=== PATIENT | male | born 2000 | race Caucasian/White ===

== ENCOUNTER 2022-12-04 20:01 | Inpatient (IN) ==
[2022-12-04 20:31] VITALS: BMI 32.1
[2022-12-04 21:07] LABS: APPEARANCE,URINE CLEAR (CLEAR); BILIRUBIN,URINE NEGATIVE (NEGATIVE); BLOOD/HEMOGLOBIN,URINE NEGATIVE (NEGATIVE); COLOR,URINE YELLOW (YELLOW); GLUCOSE, URINE NEGATIVE (NEGATIVE); KETONES,URINE NEGATIVE (NEGATIVE); LEUKOCYTE ESTERASE ,URINE NEGATIVE (NEGATIVE); NITRITES,URINE NEGATIVE (NEGATIVE); PROTEIN,URINE 1+ (NEGATIVE); UROBILINOGEN,URINE NORMAL (NORMAL)
[2022-12-04 21:17] LABS: BACTERIA,URINE NEGATIVE /HPF (NEGATIVE); RBC,URINE NONE SEEN /HPF (0-3); SQUAMOUS EPITHELIAL CELL,UR RARE /HPF (NEGATIVE)
--- NOTE | 2022-12-04 22:05 | DR.UPM ---
HPI Time Seen Time Seen by Provider: 12/04/22 22:02 PCP Primary Care Physician: landry Complaint Chief Complaint Doctors Comments: LOWER ABDOMINAL PAIN WITH DECREASED URINE OUTPUT FOR ONE DAY Chief Complaint:: pt c/o lower abd pain and decreased in urine output x 1 day COVID-19 Coronavirus risk:travel/contact w/high risk person: No Has patient experienced Coronavirus symptoms: No Source History Provided: Patient Mode of Arrival Mode of Arrival: Ambulatory Timing Onset of Chief Complaint: 12/04/22 PMH PMH Past Medical History: Yes Past Medical History: Depression Past Medical History Comment: ADHD,AUTISM Past Surgical History: Yes Past Surgical History Comment: TUBES IN EARS Family History History of Family Medical Conditions: Yes Family Medical History: Diabetes Mellitus and Hypertension Social History Type of Tobacco Use: Cigarettes Does any household member use tobacco: Yes Alcohol Use: Occasionally Do you use any recreational Drugs:: Yes (THC) Lives With: Family Lives Where: Home Travel Risk Coronavirus risk:travel/contact w/high risk person: No Has patient experienced Coronavirus symptoms: No Infectious screening In the last 2 months have you had wt loss of >10#?: NO Have you had fever, night sweats or hemotysis?: No Have you traveled outside the country in the last 6 months?: No Isolation: Standard ROS Review of Systems Constitutional: Other (RLQ ABDOMINAL PAIN) Eyes: No Symptoms Reported ENTM: No Symptoms Reported Respiratoy: No Symptoms Reported Cardiovascular: No Symptoms Reported Gastrointestinal/Abdominal: Abdominal Pain (RLQ ABDOMINAL PAIN WITH REBOUND) Genitourinary: No Symptoms Reported Neurological: No Symptoms Reported Musculoskeletal: No Symptoms Reported Integumentary: No Symptoms Reported Hematologic/Lymphatic: No Symptoms Reported Endocrine: No Symptoms Reported Psychiatric: No Symptoms Reported PE Vital Signs Vitals: Temperature 99.1 F Pulse Rate 98 Respiratory Rate 18 Blood Pressure [Left Arm] 129/72 Blood Pressure 135/74 O2 Sat by Pulse Oximetry 100 General Limitations: No Limitations General Appearance: Alert and In Distress (MODERATE DISTRESS) Head Head Exam: Normal Inspection, Atraumatic and Normocephalic Eyes Eye exam: Normal Appearance, PERRL and EOMI ENT ENT Exam: Normal Exam, Normal Oropharynx and Normal External Ear Exam Neck Neck Exam: Normal Inspection, Full ROM and Trachea Midline Chest Chest Inspection: Normal Inspection Respiratory Respiratory Exam: Normal Lung Sounds Bilat Respiratory Exam: Bilateral: Clear to Auscultation Cardiovascular Cardiovascular Exam: Regular Rate and Normal Rhythm Abdominal Exam Abdominal Exam: Tenderness (RLQ) Abdominal Tenderness: RLQ Rectal Rectal Exam: Deferred Extremities Extremities Exam: Normal Inspection and Full ROM Back Back Exam: Normal Inspection Psychiatric Psychiatric Exam: Normal Affect Skin Skin Exam: Warm, Dry and Intact MDM Differential Diagnosis Differential Diagnosis: Appendicitis, Urolithiasis and UTI COURSE Treatment Treatment: PATIENT HAD CT OF ABDOMEN AND PELVIS THAT WAS POSITIVE FOR ACUTE APPENDICITIS. SPOKE TO DR CARTER AT 2310 AND HE STATED TO ADMIT THE PATIENT AND START ZOSYN 3.375 GRAMS BUT PATIENT IS ALLERGIC TO PCN SO WILL GIVE CLEOCIN 600MG IV Q 8 HOURS. FIRST DOSE GIVEN IN ER. PATIENT WAS MADE ARARE OF THE INTENT AND WAS AGREABLE TO THE ADMISSION. WILL QLSO START NACL AT 125CC/HR. ROR Labs Reviewed Laboratory Results Reviewed?: Yes Result Diagrams: 12/04/22 22:40 12/04/22 22:40 Laboratory: WBC 9.6 X10^3/uL (3.6-10.0) 12/04/22 22:40 RBC 5.54 X10^6/uL (4.7-6.0) 12/04/22 22:40 Hgb 15.9 g/dL (13.5-18.0) 12/04/22 22:40 Hct 45.1 % (42.0-54.0) 12/04/22 22:40 MCV 81.4 fL (80.0-100.0) 12/04/22 22:40 MCH 28.6 pg (27.0-34.0) 12/04/22 22:40 MCHC 35.1 g/dL (33.0-35.0) H 12/04/22 22:40 RDW 13.5 % (11.6-16.5) 12/04/22 22:40 Plt Count 289 X10^3/uL (150.0-450.0) 12/04/22 22:40 MPV 7.3 fL (7.4-11.0) L 12/04/22 22:40 Neut % (Auto) 64.4 % (42.0-75.0) 12/04/22 22:40 Lymph % (Auto) 26.1 % (21.0-51.0) 12/04/22 22:40 [place] % (Auto) 7.3 % (0.0-13.0) 12/04/22 22:40 Eos % (Auto) 1.5 % (0.9-2.9) 12/04/22 22:40 Baso % (Auto) 0.7 % (0.2-1.0) 12/04/22 22:40 Neut # (Auto) 6.2 x10^3/uL (2.2-4.8) H 12/04/22 22:40 Lymph # (Auto) 2.5 X10^3/uL (1.3-2.9) 12/04/22 22:40 [place] # (Auto) 0.7 x10^3/uL (0.3-0.8) 12/04/22 22:40 Eos # (Auto) 0.1 x10^3/uL (0.0-0.2) 12/04/22 22:40 Baso # (Auto) 0.1 X10^3/uL (0.0-0.1) 12/04/22 22:40 Absolute Nucleated RBC 0.1 /100WBC 12/04/22 22:40 Sodium 137 mmol/L (136-145) 12/04/22 22:40 Corrected Sodium TNP 12/04/22 22:40 Potassium 4.0 mmol/L (3.5-5.1) 12/04/22 22:40 Chloride 101 mmol/L (98-107) 12/04/22 22:40 Carbon Dioxide 28.9 mmol/L (21-32) 12/04/22 22:40 BUN 9 mg/dL (7-18) 12/04/22 22:40 Creatinine 1.25 mg/dL (0.70-1.30) 12/04/22 22:40 Est GFR (MDRD) Af Amer > 60 (>60) 12/04/22 22:40 Est GFR (MDRD) Non-Af > 60 (>60) 12/04/22 22:40 Glucose 91 mg/dL (65-99) 12/04/22 22:40 Calcium 8.3 mg/dL (8.5-10.1) L 12/04/22 22:40 Corrected Calcium TNP 12/04/22 22:40 Total Bilirubin 0.30 mg/dL (0.2-1.0) 12/04/22 22:40 AST 22 Units/L (15-37) 12/04/22 22:40 ALT 39 Units/L (12-78) 12/04/22 22:40 Alkaline Phosphatase 78 Units/L (46-116) 12/04/22 22:40 Total Protein 6.9 g/dL (6.4-8.2) 12/04/22 22:40 Albumin 4.0 g/dL (3.4-5.0) 12/04/22 22:40 Globulin 2.9 g/dL (2.5-4.5) 12/04/22 22:40 Albumin/Globulin Ratio 1.4 Ratio (1.1-2.1) 12/04/22 22:40 Specimen Type Clean catch urine 12/04/22 20:54 Urine Color Yellow (YELLOW) 12/04/22 20:54 Urine Appearance Clear (CLEAR) 12/04/22 20:54 Urine pH 8.0 (5.0 - 8.0) 12/04/22 20:54 Ur Specific [place] 1.015 (1.000-1.030) 12/04/22 20:54 Urine Protein 1+ (NEGATIVE) 12/04/22 20:54 Urine Glucose (UA) Negative (NEGATIVE) 12/04/22 20:54 Urine Ketones Negative (NEGATIVE) 12/04/22 20:54 Urine Blood Negative (NEGATIVE) 12/04/22 20:54 Urine Nitrite Negative (NEGATIVE) 12/04/22 20:54 Urine Bilirubin Negative (NEGATIVE) 12/04/22 20:54 Urine Urobilinogen Normal (NORMAL) 12/04/22 20:54 Ur Leukocyte Esterase Negative (NEGATIVE) 12/04/22 20:54 Urine RBC None seen /HPF (0-3) 12/04/22 20:54 Urine WBC None seen /HPF (0-5) 12/04/22 20:54 Ur Squamous Epith Cells Rare /HPF (NEGATIVE) 12/04/22 20:54 Amorphous Sediment 1+ /HPF (NEGATIVE) 12/04/22 20:54 Urine Bacteria Negative /HPF (NEGATIVE) 12/04/22 20:54 Urine Mucus Moderate /HPF (NEGATIVE) 12/04/22 20:54 Ur Culture Indicated? No/not indicated 12/04/22 20:54 Opioid Opioid Risk Tool Age (Abdirahman box if 16-45): Yes History of Preadolescent Sexual Abuse: No Total: 1 Total Score Risk Category: Low Risk Copyright: Nathaniel PATRICK predicting aberrant behaviors Discharge Plan Diagnosis Discharge Problem: Acute appendicitis Discharge Plan Patient Disposition: ADMITTED INPATIENT Condition: Stable Prescriptions: No Action [facility] Concerns: Post Hospitalization: new medications and changes needed to prevent readmission or further decline. Pt educated and given instructions on all concerns. Plan of Treatment: Continue with present treatment and follow up plan. Pt is to keep follow up appointment as instructed and take medications as ordered. Orders to Discharge Patient Discharge Orders: Transfer (Routine); Ordered 12/04/22 Ordered By: Ángel Velázquez Follow ups/Referrals Follow ups/Referrals: ONDINA LANDRY [Primary Care Provider] - 3 days
--- NOTE | 2022-12-04 22:42 | CT ---
HISTORYLOWER ABD PAINSTUDYABDOMEN/PELVIS W/O CONCOMPARISONNoneTECHNIQUENon-contrasted axial CT images of the abdomen and pelvis were obtained and reformatted into coronal and sagittal planes for further evaluation.Radiation dose: 539.74 mGy-cm total DLPFINDINGSLung bases are clear.Stomach appears normal.Solid visceral organs of the upper abdomen are unremarkable.Gallbladder appears normal.No intra or extrahepatic biliary dilatation.Unremarkable appearance of the kidneys.No hydronephrosis, hydroureter or ureteral calculus.Unremarkable appearance of the urinary bladder.Normal appearance of the small and large bowel.Reproductive structures are unremarkable.Appendix measures up to 10 mm in thickness. Mild edema surrounding the appendix.No pneumoperitoneum.No significant fluid collection.No adenopathy.No acute osseous abnormality.IMPRESSIONAppendix measures up to 10 mm in thickness. Mild edema surrounding the appendix. Findings are concerning for acute appendicitis.Electronically signed by: Hayden Crane (Dec 04, 2022 22:40:46)
[2022-12-04 22:52] LABS: HEMATOCRIT 45.1 % (42.0-54.0); HEMOGLOBIN 15.9 g/dL (13.5-18.0)
[2022-12-04 22:56] LABS: BASOPHILS # (AUTO) 0.1 X10^3/uL (0.0-0.1); BASOPHILS % (AUTO) 0.7 % (0.2-1.0); EOSINOPHILS # (AUTO) 0.1 x10^3/uL (0.0-0.2); EOSINOPHILS % (AUTO) 1.5 % (0.9-2.9); LYMPHOCYTES # (AUTO) 2.5 X10^3/uL (1.3-2.9); LYMPHOCYTES % (AUTO) 26.1 % (21.0-51.0); MEAN CORPUSCULAR HEMOGLOBIN 28.6 pg (27.0-34.0); MEAN CORPUSCULAR HGB CONC 35.1 g/dL (33.0-35.0); MEAN CORPUSCULAR VOLUME 81.4 fL (80.0-100.0); MEAN PLATELET VOLUME 7.3 fL (7.4-11.0); MONOCYTES # (AUTO) 0.7 x10^3/uL (0.3-0.8); MONOCYTES % (AUTO) 7.3 % (0.0-13.0); NEUTROPHILS # (AUTO) 6.2 x10^3/uL (2.2-4.8); NEUTROPHILS % (AUTO) 64.4 % (42.0-75.0); RED BLOOD COUNT 5.54 X10^6/uL (4.7-6.0); RED CELL DISTRIBUTION WIDTH 13.5 % (11.6-16.5); WHITE BLOOD COUNT 9.6 X10^3/uL (3.6-10.0)
[2022-12-04 23:03] LABS: ALANINE AMINOTRANSFERASE 39 Units/L (12-78); ALKALINE PHOSPHATASE 78 Units/L (46-116); ASPARTATE AMINO TRANSFERASE 22 Units/L (15-37); BLOOD UREA NITROGEN 9 mg/dL (7-18); CALCIUM 8.3 mg/dL (8.5-10.1); CARBON DIOXIDE 28.9 mmol/L (21-32); CHLORIDE 101 mmol/L (98-107); CREATININE 1.25 mg/dL (0.70-1.30); SODIUM 137 mmol/L (136-145); TOTAL PROTEIN 6.9 g/dL (6.4-8.2); eGFR NON BLACK RACES > 60 (>60)
[2022-12-04] MEDS ORDERED: ZOSYN VIAL 3.375 GRAMS IV ONE (23:15)
[2022-12-04] MEDS ORDERED: NS 1,000 ML IV 1,000 ML ONE (23:16)
[2022-12-04] MEDS: NS 1,000 ML IV 1,000 ML IV SCH (23:23)
[2022-12-04] MEDS ORDERED: CLEOCIN 600 MG IV PREMIX 600 MG/50 ML BAG IV ONE (23:35)
[2022-12-04] MEDS: CLEOCIN 600 MG IV PREMIX 600 MG/50 ML BAG IV SCH (23:38)
[2022-12-04] MEDS ORDERED: NS 1,000 ML IV 1,000 ML IV SCH (23:45)
[2022-12-05] MEDS ORDERED: NS 1,000 ML IV 1,000 ML ONE (04:32)
[2022-12-05] MEDS ORDERED: CLEOCIN 600 MG IV PREMIX 600 MG/50 ML BAG IV ONE (04:32)
[2022-12-05] MEDS: CLEOCIN 600 MG IV PREMIX 600 MG/50 ML BAG IV SCH ×2 (06:11→13:17)
[2022-12-05] MEDS: NS 1,000 ML IV 1,000 ML IV SCH ×3 (06:11→16:22)
[2022-12-05] MEDS ORDERED: DILAUDID INJ IVP PRN ×2 (06:15→08:48)
[2022-12-05] MEDS ORDERED: BRIDION ONE (08:29)
[2022-12-05] MEDS ORDERED: DIPRIVAN VIAL 20 ML ONE (08:29)
[2022-12-05] MEDS ORDERED: FENTANYL VIAL INJ 100 mcg ONE (08:29)
[2022-12-05] MEDS ORDERED: VERSED ONE (08:29)
[2022-12-05] MEDS ORDERED: OFIRMEV IV 1000 MG VIAL 1,000 MG/100 ML VIAL IV ONE (08:29)
[2022-12-05] MEDS ORDERED: PEPCID 20 MG VIAL ONE (08:30)
[2022-12-05] MEDS ORDERED: ZEMURON 100 MG VIAL ONE (08:30)
[2022-12-05] MEDS ORDERED: ZOFRAN INJ 4 MG VIAL ONE (08:30)
[2022-12-05] MEDS ORDERED: TORADOL 30 MG VIAL ONE (08:30)
[2022-12-05] MEDS ORDERED: ZOFRAN INJ 4 MG VIAL IVP PRN (08:48)
[2022-12-05] MEDS ORDERED: REGLAN INJ 10 MG VIAL IVP PRN (08:48)
[2022-12-05] MEDS ORDERED: BARHEMSYS INJ IVP PRN (08:48)
[2022-12-05] MEDS ORDERED: BENADRYL INJ 50 MG VIAL IVP PRN (08:48)
[2022-12-05] MEDS ORDERED: LR 1,000 ML IV 1,000 ML IV ONE (08:57)
[2022-12-05] MEDS ORDERED: MARCAINE 0.5% ONE (09:06)
[2022-12-05] MEDS ORDERED: ANCEF VIAL 1 GRAM ONE (09:20)
[2022-12-05] MEDS ORDERED: NS 100 ML IV 100 ML ONE (09:21)
[2022-12-05] MEDS ORDERED: SUPRANE ONE (09:31)
--- NOTE | 2022-12-05 09:33 | DR.H&P ---
H&P History & Physical for Day of: H&P Date: 12/05/22 Chief Complaint Chief Complaint: RLQ abdominal pain. Allergies Allergies Allergy/AdvReac Type Severity Reaction Status Date / Time Penicillins Allergy Verified 12/04/22 23:16 History of Present Illness History of Present Illness: 22 year old male who presented with one day history of abdominal pain primarily umbilical now relocated to the right lower quadrant. Evaluated in the emergency room and CT scan consistent with early acute appendicitis . Past Medical History Past Medical History: Depression Past Surgical History Surgical History: No History Additional Surgical History: tubes placed in ears as a child Family History Family Medical History: Diabetes Mellitus and Hypertension Social History Does patient currently use any type of tobacco product: Yes Have you used tobacco products in the last 12 months: Yes Type of Tobacco Use: Cigarettes Does any household member use tobacco: Yes Alcohol Use: Occasionally Drug Use: Marijuana Medications Home Medications: Penicillins Allergy (Verified 12/04/22 23:16) CONTINUE taking the following medications NK 12/05/22 [History] Labs Result Diagrams: 12/04/22 22:40 12/04/22 22:40 Labs: Laboratory WBC 9.6 X10^3/uL (3.6-10.0) 12/04/22 22:40 RBC 5.54 X10^6/uL (4.7-6.0) 12/04/22 22:40 Hgb 15.9 g/dL (13.5-18.0) 12/04/22 22:40 Hct 45.1 % (42.0-54.0) 12/04/22 22:40 MCV 81.4 fL (80.0-100.0) 12/04/22 22:40 MCH 28.6 pg (27.0-34.0) 12/04/22 22:40 MCHC 35.1 g/dL (33.0-35.0) H 12/04/22 22:40 RDW 13.5 % (11.6-16.5) 12/04/22 22:40 Plt Count 289 X10^3/uL (150.0-450.0) 12/04/22 22:40 MPV 7.3 fL (7.4-11.0) L 12/04/22 22:40 Neut % (Auto) 64.4 % (42.0-75.0) 12/04/22 22:40 Lymph % (Auto) 26.1 % (21.0-51.0) 12/04/22 22:40 [place] % (Auto) 7.3 % (0.0-13.0) 12/04/22 22:40 Eos % (Auto) 1.5 % (0.9-2.9) 12/04/22 22:40 Baso % (Auto) 0.7 % (0.2-1.0) 12/04/22 22:40 Neut # (Auto) 6.2 x10^3/uL (2.2-4.8) H 12/04/22 22:40 Lymph # (Auto) 2.5 X10^3/uL (1.3-2.9) 12/04/22 22:40 [place] # (Auto) 0.7 x10^3/uL (0.3-0.8) 12/04/22 22:40 Eos # (Auto) 0.1 x10^3/uL (0.0-0.2) 12/04/22 22:40 Baso # (Auto) 0.1 X10^3/uL (0.0-0.1) 12/04/22 22:40 Absolute Nucleated RBC 0.1 /100WBC 12/04/22 22:40 Sodium 137 mmol/L (136-145) 12/04/22 22:40 Corrected Sodium TNP 12/04/22 22:40 Potassium 4.0 mmol/L (3.5-5.1) 12/04/22 22:40 Chloride 101 mmol/L (98-107) 12/04/22 22:40 Carbon Dioxide 28.9 mmol/L (21-32) 12/04/22 22:40 BUN 9 mg/dL (7-18) 12/04/22 22:40 Creatinine 1.25 mg/dL (0.70-1.30) 12/04/22 22:40 Est GFR (MDRD) Af Amer > 60 (>60) 12/04/22 22:40 Est GFR (MDRD) Non-Af > 60 (>60) 12/04/22 22:40 Glucose 91 mg/dL (65-99) 12/04/22 22:40 Calcium 8.3 mg/dL (8.5-10.1) L 12/04/22 22:40 Corrected Calcium TNP 12/04/22 22:40 Total Bilirubin 0.30 mg/dL (0.2-1.0) 12/04/22 22:40 AST 22 Units/L (15-37) 12/04/22 22:40 ALT 39 Units/L (12-78) 12/04/22 22:40 Alkaline Phosphatase 78 Units/L (46-116) 12/04/22 22:40 Total Protein 6.9 g/dL (6.4-8.2) 12/04/22 22:40 Albumin 4.0 g/dL (3.4-5.0) 12/04/22 22:40 Globulin 2.9 g/dL (2.5-4.5) 12/04/22 22:40 Albumin/Globulin Ratio 1.4 Ratio (1.1-2.1) 12/04/22 22:40 Specimen Type Clean catch urine 12/04/22 20:54 Urine Color Yellow (YELLOW) 12/04/22 20:54 Urine Appearance Clear (CLEAR) 12/04/22 20:54 Urine pH 8.0 (5.0 - 8.0) 12/04/22 20:54 Ur Specific [place] 1.015 (1.000-1.030) 12/04/22 20:54 Urine Protein 1+ (NEGATIVE) 12/04/22 20:54 Urine Glucose (UA) Negative (NEGATIVE) 12/04/22 20:54 Urine Ketones Negative (NEGATIVE) 12/04/22 20:54 Urine Blood Negative (NEGATIVE) 12/04/22 20:54 Urine Nitrite Negative (NEGATIVE) 12/04/22 20:54 Urine Bilirubin Negative (NEGATIVE) 12/04/22 20:54 Urine Urobilinogen Normal (NORMAL) 12/04/22 20:54 Ur Leukocyte Esterase Negative (NEGATIVE) 12/04/22 20:54 Urine RBC None seen /HPF (0-3) 12/04/22 20:54 Urine WBC None seen /HPF (0-5) 12/04/22 20:54 Ur Squamous Epith Cells Rare /HPF (NEGATIVE) 12/04/22 20:54 Amorphous Sediment 1+ /HPF (NEGATIVE) 12/04/22 20:54 Urine Bacteria Negative /HPF (NEGATIVE) 12/04/22 20:54 Urine Mucus Moderate /HPF (NEGATIVE) 12/04/22 20:54 Ur Culture Indicated? No/not indicated 12/04/22 20:54 Review of Systems Constitutional: See HPI Eyes: No Symptoms Reported ENT: No Symptoms Reported Respiratory: No Symptoms Reported Cardiovascular: No Symptoms Reported Gastrointestinal: See HPI Genitourinary: No Symptoms Reported Musculoskeletal: No Symptoms Reported Skin: No Symptoms Reported Neurological: No Symptoms Reported Physical Exam Vital Signs: Temperature 97 F Pulse Rate [Right Brachial] 71 Pulse Rate 77 Respiratory Rate 17 Blood Pressure [Left Arm] 117/54 Blood Pressure 145/69 O2 Sat by Pulse Oximetry 99 Oriented: Normal, Time, Person and Place Eyes: Normal Ear: Normal Nose: Normal Throat: Normal Respiratory: Clear Throughout Cardiovascular: Normal : Normal Auscultation: Bowel Sounds: Normal Palpation: Normal Tenderness: RLQ Skin: Normal Musculoskeletal: Normal Psychiatric: Normal and Anxiety Mood Description: Calm Affect: Flat Speech Pattern: Clear Assessment/Plan (1) Acute appendicitis: Status: Acute Plan: Plan laparoscopic appendectomy. Risks and benefits discussed. He agrees. Review H&P Reviewed: Yes Patient was examined?: Yes
[2022-12-05] MEDS ORDERED: PERCOCET TAB 5/325 MG PO PRN (10:19)
--- NOTE | 2022-12-05 10:24 | OR.IMMED ---
IMMEDIATE POST-OP NOTE Immediate Post-Op Note Pre-Op Diagnosis: acute appendicitis Post-Op Diagnosis: same Procedure: laparoscopic appendectomy Description of Procedure: see operative summary Surgeon/Metal Patternmaker: Erika Findings: as above Estimated Blood Loss: minimal Complications: none Post Hospital Plans and Medications: Return to floor, discharge later today Final Diagnosis: acute appendicitis
[2022-12-05] MEDS ORDERED: DILAUDID INJ ONE (10:26)
[2022-12-05 16:13] VITALS: BP 136/64
--- NOTE | 2022-12-05 17:02 | DR.OPNOTE ---
OP NOTE Pre-Op Diagnosis: acute appendicitis Post-Op Diagnosis: same Procedure Date Date Of Procedure: 12/05/22 Procedure: PROCEDURE: LAPAROSCOPIC APPENDECTOMY NARRATIVE : The patient was taken to the operative suite and placed in the supine position .General endotracheal anesthesia induced. The entire abdomen prepped and draped in sterile fashion. Time out for the procedure performed . A 5mm incision was made lateral to the left rectus sheath online with the umbilicus and a 5 mm trocar used to enter the abdominal cavity . Abdomen insufflated to 15 mm of Hg with carbon dioxide. Under direct Vision a 5 mm trocar placed above the pubic tubercles and a 12 mm trocar placed in the left lower quadrant. Appendix easily identified and appeared to be inflamed and contracted. Appendix sharply dissected free and the base of the appendix and the mesentery divided with fires of the LINDA stapler. The specimen brought out through the left lower quadrant incision and a specimen bag. The area irrigated free. Surgicel placed in the area. All trocars removed . All incisions closed with 3-0 Vicryl subcutaneous sutures. The skin closed with 1/2 inch steri strips and Mastisol A total of 20 cc's of 0.5% Marcaine distributed between all three incisions Type of Anesthesia: General Anesthetic w/ETT Findings: acute appendicitis Specimen/Pathology: appendix EBL: minimal Drains/Tubes Placed: None Complications:: none Needle/Sponge Count:: correct Disposition/Condition: Pt. tolerated procedure without difficulty. Extubated in the OR and taken to PACU in stable condition.
--- NOTE | 2022-12-05 17:53 | W.DIS.FURT ---
Summary of Discharge Discharge Summary of Date Date of Exam: 12/05/22 Admission Date Date of Admission: 12/05/22 Admission Diagnosis Patient Problems (Updated 12/05/22 @ 09:32 by Paul James) Acute appendicitis (Acute) K35.80 Hospital Course: This 22 year old male presented with a 1-day history of abdominal pain relocated to the right lower quadrant. CT scan consistent with acute appendicitis. He underwent an uncomplicated laparoscopic appendectomy and has done well post- procedure, is tolerating a diet and his pain controlled with po Percocet only. He will be discharged home and follow up with me in 1 week. He may shower shower in 24 hours. Vital Signs: Vital Signs (72 hours) 12/04/22 20:02 12/05/22 01:33 12/05/22 01:30 Temperature 99.1 F 99.0 F Pulse Rate 98 H Pulse Rate [Right Brachial] 96 H Respiratory Rate 18 20 Blood Pressure 135/74 Blood Pressure [Left Arm] 128/70 O2 Sat by Pulse Oximetry 100 100 Oxygen Delivery Method Room Air Room Air Room Air 12/05/22 04:00 12/05/22 07:00 12/05/22 08:00 Temperature 98.5 F 97.9 F Pulse Rate Pulse Rate [Right Brachial] 67 71 Respiratory Rate 18 18 Blood Pressure Blood Pressure [Left Arm] 123/59 117/54 O2 Sat by Pulse Oximetry 98 97 Oxygen Delivery Method Room Air Room Air Room Air 12/05/22 08:55 12/05/22 09:31 12/05/22 10:23 Temperature 97 F L 97 F L Pulse Rate 77 97 H Pulse Rate [Right Brachial] Respiratory Rate 17 16 17 Blood Pressure 145/69 142/70 Blood Pressure [Left Arm] O2 Sat by Pulse Oximetry 99 100 Oxygen Delivery Method Room Air Room Air 12/05/22 10:28 12/05/22 10:33 12/05/22 10:38 Temperature Pulse Rate 93 H 92 H 87 Pulse Rate [Right Brachial] Respiratory Rate 17 16 16 Blood Pressure 130/57 121/62 127/65 Blood Pressure [Left Arm] O2 Sat by Pulse Oximetry 100 94 L 97 Oxygen Delivery Method Room Air Room Air Room Air 12/05/22 10:43 12/05/22 10:48 12/05/22 10:26 Temperature Pulse Rate 86 82 Pulse Rate [Right Brachial] Respiratory Rate 16 16 16 Blood Pressure 130/63 124/58 Blood Pressure [Left Arm] O2 Sat by Pulse Oximetry 95 94 L Oxygen Delivery Method Room Air Room Air 12/05/22 10:53 12/05/22 11:05 12/05/22 11:15 Temperature 97.9 F Pulse Rate 82 Pulse Rate [Right Brachial] 88 86 Respiratory Rate 16 20 20 Blood Pressure 129/63 Blood Pressure [Left Arm] 131/64 121/57 O2 Sat by Pulse Oximetry 96 95 95 Oxygen Delivery Method Room Air Room Air 12/05/22 11:30 12/05/22 11:45 12/05/22 12:00 Temperature 97.7 F Pulse Rate Pulse Rate [Right Brachial] 84 93 H 80 Respiratory Rate 20 20 20 Blood Pressure Blood Pressure [Left Arm] 124/61 128/60 130/57 O2 Sat by Pulse Oximetry 94 L 95 96 Oxygen Delivery Method 12/05/22 12:15 12/05/22 10:56 12/05/22 13:19 Temperature Pulse Rate Pulse Rate [Right Brachial] 86 Respiratory Rate 20 18 20 Blood Pressure Blood Pressure [Left Arm] 130/60 O2 Sat by Pulse Oximetry 97 Oxygen Delivery Method 12/05/22 13:00 12/05/22 14:00 12/05/22 14:19 Temperature Pulse Rate Pulse Rate [Right Brachial] 77 76 Respiratory Rate 18 20 20 Blood Pressure Blood Pressure [Left Arm] 122/60 111/54 O2 Sat by Pulse Oximetry 96 97 Oxygen Delivery Method 12/05/22 16:00 Temperature 98.0 F Pulse Rate Pulse Rate [Right Brachial] 73 Respiratory Rate 18 Blood Pressure Blood Pressure [Left Arm] 136/64 O2 Sat by Pulse Oximetry 95 Oxygen Delivery Method Labs: Laboratory Last Values WBC 9.6 X10^3/uL (3.6-10.0) 12/04/22 22:40 RBC 5.54 X10^6/uL (4.7-6.0) 12/04/22 22:40 Hgb 15.9 g/dL (13.5-18.0) 12/04/22 22:40 Hct 45.1 % (42.0-54.0) 12/04/22 22:40 MCV 81.4 fL (80.0-100.0) 12/04/22 22:40 MCH 28.6 pg (27.0-34.0) 12/04/22 22:40 MCHC 35.1 g/dL (33.0-35.0) H 12/04/22 22:40 RDW 13.5 % (11.6-16.5) 12/04/22 22:40 Plt Count 289 X10^3/uL (150.0-450.0) 12/04/22 22:40 MPV 7.3 fL (7.4-11.0) L 12/04/22 22:40 Neut % (Auto) 64.4 % (42.0-75.0) 12/04/22 22:40 Lymph % (Auto) 26.1 % (21.0-51.0) 12/04/22 22:40 [place] % (Auto) 7.3 % (0.0-13.0) 12/04/22 22:40 Eos % (Auto) 1.5 % (0.9-2.9) 12/04/22 22:40 Baso % (Auto) 0.7 % (0.2-1.0) 12/04/22 22:40 Neut # (Auto) 6.2 x10^3/uL (2.2-4.8) H 12/04/22 22:40 Lymph # (Auto) 2.5 X10^3/uL (1.3-2.9) 12/04/22 22:40 [place] # (Auto) 0.7 x10^3/uL (0.3-0.8) 12/04/22 22:40 Eos # (Auto) 0.1 x10^3/uL (0.0-0.2) 12/04/22 22:40 Baso # (Auto) 0.1 X10^3/uL (0.0-0.1) 12/04/22 22:40 Absolute Nucleated RBC 0.1 /100WBC 12/04/22 22:40 Sodium 137 mmol/L (136-145) 12/04/22 22:40 Corrected Sodium TNP 12/04/22 22:40 Potassium 4.0 mmol/L (3.5-5.1) 12/04/22 22:40 Chloride 101 mmol/L (98-107) 12/04/22 22:40 Carbon Dioxide 28.9 mmol/L (21-32) 12/04/22 22:40 BUN 9 mg/dL (7-18) 12/04/22 22:40 Creatinine 1.25 mg/dL (0.70-1.30) 12/04/22 22:40 Est GFR (MDRD) Af Amer > 60 (>60) 12/04/22 22:40 Est GFR (MDRD) Non-Af > 60 (>60) 12/04/22 22:40 Glucose 91 mg/dL (65-99) 12/04/22 22:40 Calcium 8.3 mg/dL (8.5-10.1) L 12/04/22 22:40 Corrected Calcium TNP 12/04/22 22:40 Total Bilirubin 0.30 mg/dL (0.2-1.0) 12/04/22 22:40 AST 22 Units/L (15-37) 12/04/22 22:40 ALT 39 Units/L (12-78) 12/04/22 22:40 Alkaline Phosphatase 78 Units/L (46-116) 12/04/22 22:40 Total Protein 6.9 g/dL (6.4-8.2) 12/04/22 22:40 Albumin 4.0 g/dL (3.4-5.0) 12/04/22 22:40 Globulin 2.9 g/dL (2.5-4.5) 12/04/22 22:40 Albumin/Globulin Ratio 1.4 Ratio (1.1-2.1) 12/04/22 22:40 Specimen Type Clean catch urine 12/04/22 20:54 Urine Color Yellow (YELLOW) 12/04/22 20:54 Urine Appearance Clear (CLEAR) 12/04/22 20:54 Urine pH 8.0 (5.0 - 8.0) 12/04/22 20:54 Ur Specific [place] 1.015 (1.000-1.030) 12/04/22 20:54 Urine Protein 1+ (NEGATIVE) 12/04/22 20:54 Urine Glucose (UA) Negative (NEGATIVE) 12/04/22 20:54 Urine Ketones Negative (NEGATIVE) 12/04/22 20:54 Urine Blood Negative (NEGATIVE) 12/04/22 20:54 Urine Nitrite Negative (NEGATIVE) 12/04/22 20:54 Urine Bilirubin Negative (NEGATIVE) 12/04/22 20:54 Urine Urobilinogen Normal (NORMAL) 12/04/22 20:54 Ur Leukocyte Esterase Negative (NEGATIVE) 12/04/22 20:54 Urine RBC None seen /HPF (0-3) 12/04/22 20:54 Urine WBC None seen /HPF (0-5) 12/04/22 20:54 Ur Squamous Epith Cells Rare /HPF (NEGATIVE) 12/04/22 20:54 Amorphous Sediment 1+ /HPF (NEGATIVE) 12/04/22 20:54 Urine Bacteria Negative /HPF (NEGATIVE) 12/04/22 20:54 Urine Mucus Moderate /HPF (NEGATIVE) 12/04/22 20:54 Ur Culture Indicated? No/not indicated 12/04/22 20:54 Tissue Pathology To follow 12/05/22 10:05 Reason For Visit: APPENDICITIS Discharge Date Discharge Date: 12/05/22 Discharge Diagnosis All Active Problems (Updated 12/05/22 @ 09:32 by Paul James) Acute appendicitis (Acute) Otitis externa (Active) otitis media (Acute) Behavior concern (Acute) Otitis media (Acute) Sinusitis (Acute) Bronchitis (Acute) Knee locking (Acute) Acute left ankle pain (Acute) Acute streptococcal pharyngitis (Acute) Sprain of right shoulder (Acute) URTI (infection of the upper respiratory tract) (Acute) Cough (Acute) Otitis media (Acute) Wax in ear (Acute) Influenza A (Acute) Acute streptococcal pharyngitis (Acute) Otitis media (Acute) Throat infection (Acute) Acute appendicitis (Acute) Plan of Treatment: Continue with present treatment and follow up plan. Pt is to keep follow up appointment as instructed and take medications as ordered. Discharge Medications Discharge Medications: Penicillins Allergy (Verified 12/04/22 23:16) New Prescriptions oxycodone-acetaminophen 5 mg-325 mg tablet 1 ea PO Q6H PRN 12/05/22 [Rx] Discharge Disposition Assessment: Acute appendicitis Discharge Plan Discharge Plan Hospital Course: This 22 year old male presented with a 1-day history of abdominal pain relocated to the right lower quadrant. CT scan consistent with acute appendicitis. He underwent an uncomplicated laparoscopic appendectomy and has done well post- procedure, is tolerating a diet and his pain controlled with po Percocet only. He will be discharged home and follow up with me in 1 week. He may shower shower in 24 hours. Patient Disposition: HOME, SELF-CARE Condition: Stable Health Concerns: Post Hospitalization: new medications and changes needed to prevent readmission or further decline. Pt educated and given instructions on all concerns. Care Plan Goals: as above Plan of Treatment: Continue with present treatment and follow up plan. Pt is to keep follow up appointment as instructed and take medications as ordered. Assessment: Acute appendicitis Prescriptions: New oxycodone-acetaminophen 5-325 mg Tablet 1 ea PO Q6H [id number] Follow ups/Referrals Follow ups/Referrals: ONDINA LANDRY [Primary Care Provider] - 3 days Instructions Instructions: Laparoscopic Appendectomy, Adult, Care After, [id number] Stand Alone Forms: Excuse From Work or School
== END 2022-12-05 17:15 | disposition home or self-care (01) | DRG 342 ==
LOC: ICU 20:01 → ER 20:01 → OBSVTOIN 23:39 → ICU 12-05 01:30
PROVIDERS: ADMIT Surgery; ATTEND Surgery
PROC: APPYLAP (ICD-10-PCS; 2022-12-05 09:15)
DX: R10.31 Right lower quadrant pain; K35.20 Acute appendicitis with generalized peritonitis, without abscess; F84.0 Autistic disorder